=== PATIENT | female | born 1955 ===

== ENCOUNTER 2019-01-20 13:29 | Outpatient (CLI) | payer MEDICARE, MEDICAID, SELFPAY ==
[2019-01-20 14:01] LABS: Abs Immature Grans 0.01 k/cumm (0.0-0.09); Absolute Basophil Count 0.05 k/cumm (0.0-0.2); Absolute Eosinophil Count 0.16 k/cumm (0.0-0.7); Absolute Lymphocyte Count 2.03 k/cumm (1.2-3.4); Absolute Monocyte Count 0.53 k/cumm (0.11-0.7); Absolute Neutrophil Count 2.18 k/cumm (1.2-6.7); Eosinophils % 3.2; HCT 40.8 % (36.0-46.0); HGB 12.9 g/dL (12.0-15.5); Immature Grans % 0.2; Lymphocytes % 40.9; Mean Corp. HGB Concentration 31.6 g/dL (32.0-36.0); Mean Corpuscular Hemoglobin 31.6 pg (27.0-33.0); Mean Platelet Volume 9.7 fL (8.0-11.0); Monocytes % 10.7; Platelet Count 277 x1000/uL (130-400); RBC 4.08 m/cumm (4.00-5.20); RBC Distribution Width 12.8 % (11.7-14.6); White Blood Cell Count 4.96 k/cumm (4.4-10.8)
[2019-01-20 14:54] LABS: ALT 28 U/L (12-78); AST 11 U/L (15-37); Albumin 3.9 g/dL (3.4-5.0); Alkaline Phosphatase 105 U/L (46-116); Anion Gap 11.4 mmol/L (3-11); BUN 16 mg/dL (7-18); Bilirubin, Total 0.2 mg/dL (0.2-1.0); CO2 25.6 mmol/L (21.0-32.0); CREATININE 0.73 mg/dL (0.55-1.02); Chloride 103 mmol/L (98-107); FREE T4 0.77 ng/dL (0.76-1.46); Glucose 89 mg/dL (70-100); Potassium 4.2 mmol/L (3.5-5.1); Sodium 140 mmol/L (136-145); TSH 5.61 uIU/mL (0.36-3.74); Total Protein 7.6 g/dL (6.4-8.2)
[2019-01-20 21:33] LABS: T3,Free 3.3 pg/ml (2.8-5.3)
[2019-01-23 13:44] LABS: ANA Interpretation Negative (NEGAT)
[2019-01-24 12:32] LABS: SS-A Antibody 2.5 Units (<20); SS-B (La) Ab, IgG 5.3 Units (<20)
== END 2019-01-20 13:49 ==
PROVIDERS: PCP Naturopath; Visit Provider Naturopath
DX: J30.9 Allergic rhinitis, unspecified (principal); E04.1 Nontoxic single thyroid nodule; D53.9 Nutritional anemia, unspecified; E63.9 Nutritional deficiency, unspecified; H57.9 Unspecified disorder of eye and adnexa; R53.83 Other fatigue; R68.2 Dry mouth, unspecified
CPT/HCPCS: 36415; 80053; 84439; 84443; 84481; 85025; 86038; 86235

== ENCOUNTER 2019-03-21 01:36 | Outpatient (CLI) | payer MEDICARE, MEDICAID, SELFPAY ==
--- NOTE | 2019-03-21 14:42 | DI.RAD_ITS ---
EXAM: XR HIP LT COMPLETE AP PELVIS INDICATION: LT HIP PAIN, ? DISLOCATION,M25.552. COMPARISON: No exams were available for comparison TECHNIQUE: 2D digital imaging was performed. FINDINGS: The hip joint spaces are well maintained. No fracture or dislocation is seen. There is no deformit y of the femoral heads. SI joints show IMPRESSION: Mild degenerative changes. No evidence dislocation.
== END 2019-03-21 01:56 ==
PROVIDERS: PCP Naturopath; Visit Provider Naturopath
DX: M25.552 Pain in left hip (principal); M16.12 Unilateral primary osteoarthritis, left hip
CPT/HCPCS: 73502

== ENCOUNTER 2019-04-14 13:30 | Emergency (ER) | payer MEDICARE, MEDICAID, SELFPAY ==
[2019-04-14 13:33] VITALS: BP 130/76; PULSE 80; RESP 14; TEMP 35.8; O2SAT 97
--- NOTE | 2019-04-14 13:44 | DI.RAD_ITS ---
EXAM: XR ANKLE LT COMPLETE INDICATION: s/p twisting, r/o acute fracture. COMPARISON: No exams were available for comparison TECHNIQUE: 2D digital imaging was performed. FINDINGS: No fracture or dislocation is seen. The joint space is well maintained. No ankle mortise disruptio n is seen. IMPRESSION: Negative left ankle.
--- NOTE | 2019-04-14 13:45 | ED.GENADUL_ITS ---
Discharge Plan Disposition Patient Disposition: HOME Condition: Stable Discharge Details Chief Complaint: Orthopedic Clinical Impression: Left ankle sprain Primary Care Provider: Sergio Lara ED Provider: Lilia Louis Home Meds and New Rx's Prescriptions: Continued cat's claw (linda putnam) 400 MG capsule 400 mg PO DAILY RF: 0 acetylcysteine 500 MG capsule 1,000 mg PO DAILY RF: 0 haw[place]orn PO RF: 0 flavoring agent (bulk) [Grapefruit] 1 ML oil 1 ml Miscellaneous RF: 0 nystatin 500,000 UNITS tablet 500,000 units PO BID RF: 0 azithromycin 500 MG tablet 500 mg PO DAILY RF: 0 T-3 60 mcg PO DAILY RF: 0 T-4 90 mcg PO DAILY RF: 0 Discharge Instructions Instructions: Ankle Sprain (ED) Additional Instructions: Rest, ice and elevate left ankle as much as possible. Wear you anne wrap that you have at home. Use your home remedies that you have for pain as needed. Follow up with your primary care doctor for re-evaluation or referral to orthopedics if symptoms do not improve or worsen. Return to the emergency department with any concerns. Discharge Data Discharge Physician: Lilia Louis Medical Decision Making 64yo F w/ L ankle and foot pain after twisted her ankle when walking down stairs. Did not take anything for pain. There is tenderness to palpation L medial and lateral malleoli but no bony deformity or noted edema/erythema/ecchymoses. Neurovascularly intact. She was offered motrin or tylenol but declined stating she doesn't like to take medications. Ankle and foot xrays were done which were normal. She declines crutches or anne wrap. She states she has anne wrap at home. She was instructed on RICE and to use her usual home remedies for pain. She was advised to f/u with pcp if symptoms do not improve for referral to orthopedics and to return here with any concerns. Medical Records Medical records reviewed: Yes I reviewed the patient's medical records. Imaging Data Radiologic Study: Radiologist's impression: XR ANKLE LT COMPLETE INDICATION: s/p twisting, r/o acute fracture. COMPARISON: No exams were available for comparison TECHNIQUE: 2D digital imaging was performed. FINDINGS: No fracture or dislocation is seen. The joint space is well maintained. No ankle mortise disruption is seen. IMPRESSION: Negative left ankle. XR FOOT LT COMPLETE INDICATION: s/p twisting, r/o fracture. COMPARISON: No exams were available for comparison TECHNIQUE: 2D digital imaging was performed. FINDINGS: No fracture or dislocation is seen. The joint spaces are well maintained. No bony erosions are. IMPRESSION: Negative left foot. HPI General Mode of arrival: ambulatory . Date/Time Provider Initiated Documentation: 04/14/19 13:40 . Limitations to Documentation: no limitations . Information obtained by: patient . HPI Narrative: Pt is a 64yo F who presents to the ED w/ a c/o L ankle and foot pain after twisting her ankle when she missed the last step of a set of stairs while walking quickly. She denies any other injuries. She has applied ice. She does not like to take medications. Related Data Home Medications Medication Instructions Recorded Confirmed T-3 60 mcg PO DAILY 08/03/15 08/03/15 T-4 90 mcg PO DAILY 08/03/15 08/03/15 azithromycin 500 mg PO DAILY 08/03/15 08/03/15 nystatin 500,000 units PO BID 08/03/15 08/03/15 [place] PO 09/11/15 acetylcysteine 1,000 mg PO DAILY 09/11/15 cat's claw (uncaria tomentosa) 400 mg PO DAILY 09/11/15 flavoring agent (bulk) [Grapefruit] 1 ml MISCELLANEOUS 09/11/15 Allergies Allergy/AdvReac Type Severity Reaction Status Date / Time cat dander Allergy Mild Unverified 09/11/15 14:02 ranitidine HCl [From Zantac] Allergy Unverified 09/11/15 14:02 pregabalin [From Lyrica] AdvReac Severe Unverified 09/11/15 14:02 gluten Allergy Intermediate Swelling/Ed Uncoded 09/11/15 14:02 edgar mold Allergy Unknown Uncoded 09/11/15 14:02 General Stated Complaint: Orthopedic TJ: 4 Review of Systems All systems reviewed & are unremarkable except as noted in HPI and below PFSH Medical History Fibromyalgia (Acute) Hypothyroidism (Chronic) Lyme disease (Acute) Surgical History History of appendectomy (Chronic) History of bilateral tubal ligation (Acute) Social History Smoking/Tobacco Use Status: Never Drug use: Occasionally Substance use type: marijuana Details: occassional marijuana daily CBD Do you feel safe at home: Yes Do you feel safe in your relationship?: Yes Exam Const General: cooperative, healthy appearing and no acute distress HENMT Head: normal to inspection Mouth: oral mucosae normal Eyes General: appearance normal, both eyes and all related structures Neck Neck: normal visual inspection Resp Effort & Inspection: normal respiratory effort and able to speak in complete se ntences Cardio Rate: regular rate Skin General skin exam: no rashes or lesions noted Neuro General: alert, awake, oriented x3 and no focal motor deficits Motor: muscle tone normal throughout Sensory Exam: no sensory deficits noted Extrem Other: Tenderness to palpation L medial and lateral malleoli. There is no significant edema or ecchymoses, erythema or open wounds. L PT/DP pulses intact. No bony deformity. Psych Appearance: grossly normal Affect: normal affect Course Vital Signs Vital signs: Vital Signs Temperature 96.4 F L 04/14/19 13:33 Pulse 80 04/14/19 13:33 Respiratory Rate 14 04/14/19 13:33 Blood Pressure 130/76 04/14/19 13:33 Pulse Oximetry 97 04/14/19 13:33 Temperature 96.4 F L 04/14/19 13:33 Temperature Source Skin 04/14/19 13:33 Pulse 80 04/14/19 13:33 Respiratory Rate 14 04/14/19 13:33 Blood Pressure 130/76 04/14/19 13:33 Blood Pressure Position Sitting 04/14/19 13:33 Pulse Oximetry 97 04/14/19 13:33 Oxygen Delivery Method Room Air 04/14/19 13:33 Oxygen Flow Rate 0 04/14/19 13:33 Pain Level 8 04/14/19 13:33
== END 2019-04-14 14:28 | disposition home or self-care (01) ==
PROVIDERS: Emergency Provider Physician Assistant; PCP Naturopath
DX: S93.402A Sprain of unspecified ligament of left ankle, initial encounter (principal); W18.49XA Other slipping, tripping and stumbling without falling, initial encounter
CPT/HCPCS: 99283; 73610; 73630; 99282

== ENCOUNTER 2019-07-23 22:07 | Emergency (ER) | payer MEDICARE, MEDICAID, SELFPAY ==
[2019-07-23 22:11] VITALS: BP 139/96; PULSE 91; RESP 20; TEMP 36.8; O2SAT 97
--- NOTE | 2019-07-23 22:20 | W.ED.GENAD ---
Discharge Plan Disposition Patient Disposition: HOME Condition: Stable Discharge Details Chief Complaint: FlankPain Clinical Impression: Acute UTI, Abdominal pain, Diverticulosis Primary Care Provider: Sergio Lara ED Provider: Trinidad Helm Home Meds and New Rx's Prescriptions: New ciprofloxacin HCl 500 mg tablet 500 mg PO BID 7 Days Qty: 14 RF: 0 Continued cat's claw (alvaaria tomentosa) 400 MG capsule 400 mg PO DAILY RF: 0 acetylcysteine 500 MG capsule 1,000 mg PO DAILY RF: 0 hawthorn PO RF: 0 flavoring agent (bulk) [Grapefruit] 1 ML oil 1 ml Miscellaneous RF: 0 nystatin 500,000 UNITS tablet 500,000 units PO BID RF: 0 T-3 60 mcg PO DAILY RF: 0 T-4 90 mcg PO DAILY RF: 0 Discharge Instructions Instructions: Diverticulosis (ED), Urinary Tract Infection in Women (ED), Diverticulosis Diet (GEN), Abdominal Pain (ED) Additional Instructions: Follow up with primary care provider in 3-5 days. Return to ED sooner if any worsening or concerns. Increase oral fluids. Please take Tylenol or Ibuprofen with food every 4-6 hours as needed for pain and swelling. Please reconsider not taking the antibiotics. Please return if any worsening fever, abdominal pain, diarrhea or any concerns. Referrals: Sergio Lara [Primary Care Provider] - Medical Decision Making 64-year-old female presents with right flank pain which radiates around to her right side of her abdomen. This is been ongoing for about 4 days denies fever, diarrhea nausea vomiting, she reports relief from the pain with urination. She is concerned for kidney stone. She denies dysuria. Surgical history includes appendectomy and tubal ligation. PROCEDURE INFORMATION: Exam: CT Abdomen And Pelvis Without Contrast Exam date and time: 07/23/2019 10:49 PM Age: 64 years old Clinical indication: Other: Right flank pain TECHNIQUE: Imaging protocol: Computed tomography of the abdomen and pelvis without contrast. Radiation optimization: All CT scans at this facility use at least one of these dose optimization techniques: automated exposure control; mA and/or kV adjustment per patient size (includes targeted exams where dose is matched to clinical indication); or iterative reconstruction. COMPARISON: CR XR HIP LT COMPLETE AP PELVIS 03/21/2019 2:37 PM FINDINGS: Liver: No discrete hepatic mass detected on this noncontrast examination. Gallbladder and bile ducts: Normal. No calcified stones. No ductal dilation. Pancreas: Normal. No ductal dilation. Spleen: Normal. No splenomegaly. Adrenals: Normal. No mass. Kidneys and ureters: An 11 mm fluid attenuation cyst is seen along the lateral margin of the right kidney with no other right or left renal mass or hydronephrosis detected. No calcified stones are seen within either pelvicaliceal system or along the course of either ureter with both ureters normal in course and caliber. Stomach and bowel: Multiple diverticula involve the distal descending and sigmoid colonic segments without associated diverticulitis and other segments of large and small bowel are unremarkable. Appendix: Surgically absent. Intraperitoneal space: Unremarkable. No free air. No significant fluid collection. Vasculature: Unremarkable. No abdominal aortic aneurysm. Lymph nodes: Unremarkable. No enlarged lymph nodes. [facility] Preliminary Radiology Report [employer] (QA) DISCREPANCY? If there is a discrepancy between the preliminary and final interpretation, please notify [facility] via [email or web address]. If you do not have access to our QA portal, call our QA team at [phone] CONFIDENTIALITY STATEMENT This report is intended only for the use of the referring physician, and only in accordance with law, If you received this in error, call [phone] Page 2 of 2 Bladder: No calcified stones are seen within the urinary bladder. Reproductive: Unremarkable as visualized. Bones/joints: Unremarkable. No acute fracture. Soft tissues: Unremarkable. Other findings: Will IMPRESSION: 1. There is no evidence of obstructing renal calculus or acute hydronephrosis/hydroureter. 2. Diverticulosis without evidence of diverticulitis. There is no other evidence of an acute abdominpelvic process detected. Thank you for allowing us to participate in the care of your patient. Dictated and Authenticated by: Tom Pressley MD 07/23/2019 11:14 PM Eastern Time ([place] & [place]) Labs obtained including CBC, CMP and urinalysis which shows 25-50 WBCs in her urine. CT results are resulted as no evidence of obstructing renal calculus or acute hydronephrosis or hydroureter to diverticulosis without evidence of diverticulitis there is no other evidence of acute abdominal process detected. She does have an incidental 11 mm fluid-filled cyst to her right kidney. CT was performed without contrast so this could be diverticulitis. Also could be UTI. Patient was offered Toradol which she refused, she was also offered Tylenol which she refused. 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 Discussed possible urinary tract infection and possible infection in her colon I offered to prescribe her Cipro which she also refused. I will give her a prescription for Cipro to treat possible diverticulitis and UTI but it seems that patient may not take this medication at this time. She is alert and oriented and able to make her own decisions. Her vital signs are stable. She is afebrile. Strict return instructions given to return if she has fever, worsening pain or any concerns. Verbalized understanding. Lab Data Lab results reviewed: Yes I reviewed the patient's lab results. HPI General Mode of arrival: ambulatory. Date/Time Provider Initiated Documentation: 07/23/19 22:15. Limitations to Documentation: no limitations. Information obtained by: patient. HPI Narrative: 64-year-old female presents with right-sided flank pain which began 4 days ago. She reports worsening pain. Denies dysuria, nausea vomiting or diarrhea. No fever. Surgical history includes appendectomy and tubal ligation. Related Data Home Medications Medication Instructions Recorded Confirmed T-3 60 mcg PO DAILY 08/03/15 08/03/15 T-4 90 mcg PO DAILY 08/03/15 08/03/15 nystatin 500,000 units PO BID 08/03/15 08/03/15 [place] PO 09/11/15 acetylcysteine 1,000 mg PO DAILY 09/11/15 cat's claw (uncaria tomentosa) 400 mg PO DAILY 09/11/15 flavoring agent (bulk) [Grapefruit] 1 ml MISCELLANEOUS 09/11/15 ciprofloxacin HCl 500 mg PO BID 7 Days #14 tab 07/23/19 Previous Rx's Medication Instructions Recorded ciprofloxacin HCl 500 mg PO BID 7 Days #14 tab 07/23/19 Allergies Allergy/AdvReac Type Severity Reaction Status Date / Time cat dander Allergy Mild Unverified 09/11/15 14:02 ranitidine HCl [From Zantac] Allergy Unverified 09/11/15 14:02 pregabalin [From Lyrica] AdvReac Severe Unverified 09/11/15 14:02 gluten Allergy Intermediate Swelling/Ed Uncoded 09/11/15 14:02 edgar mold Allergy Unknown Uncoded 09/11/15 14:02 IV contrast AdvReac Unknown Uncoded 07/23/19 22:15 General Stated Complaint: FlankPain TJ: 3 Review of Systems Narrative: Constitutional: Negative for weight loss, alert and oriented, well groomed, normal body habitus, appears comfortable. HEENT: Denies trauma, headaches, blurry vision, nasal discharge, sore throat, trouble swallowing. Chest: Denies chest pain, palpitations, irregular rhythm, hypertension. Respiratory: Denies Shortness of breath, cough, hemoptysis. GI: Denies nausea, vomiting, diarrhea, constipation. Positive right-sided abdominal pain. : Denies dysuria, hematuria, rectal bleeding. Positive flank pain Neuro: Denies dizziness, blurry vision, weakness, syncope, headache or facial numbness. Hematologic: Denies easy bruising, intolerance to heat or cold, hair loss. [facility] Medical History Fibromyalgia (Acute) Hypothyroidism (Chronic) Lyme disease (Acute) Surgical History History of appendectomy (Chronic) History of bilateral tubal ligation (Acute) Social History Smoking/Tobacco Use Status: Never Alcohol Intake: current Alcohol Intake frequency: a few times a month Drug use: Occasionally Substance use type: marijuana Details: occassional marijuana daily CBD Do you feel safe at home: Yes Do you feel safe in your relationship?: Yes Exam Narrative Exam Narrative: Constitutional: Allert and oriented x3. Appears stated age. Normal body habitus. Head: Normocephalic, no trauma. Eyes: Pupils PERRLA, Red reflex noted, EOM's intact. Eyelids symmetrical withour lesions, discharge, or swelling. ENT: Bilateral TM's WNL, External ear normal to inspection, no mastoid TTP, swelling, or erythema, Nasal turbinates WNL, no nasal discharge. Normal dentition, Posterior pharynx WNL, no exudate. Chest: RRR, Normal S1, S2, distal pulses intact. Resp: Lungs clear to auscultation bilaterally, no wheezes, rales, or rhonchi. Abdomen: Tender to palpation over right lower quadrant and right upper quadrant. Right CVA tenderness. Hypoactive bowel sounds. Musculoskeletal: Normal gait, 5/5 strength to all four extremities. Skin: No suspicious rashes or lesions. Capillary refill ?2 sec. Neurologic: Cranial nerves II-XII intact. Alert and oriented x 3. DTR's intact. Hematologic/Lymphatic: No ecchymosis, no lymphadenopathy. Course Vital Signs Vital signs: Vital Signs Temperature 36.8 C 07/23/19 22:11 Pulse 91 H 07/23/19 22:11 Respiratory Rate 07/23/19 22:11 Blood Pressure 139/96 H 07/23/19 22:11 Pulse Oximetry 97 07/23/19 22:11 Temperature 36.8 C 07/23/19 22:11 Pulse 91 H 07/23/19 22:11 Respiratory Rate 20 07/23/19 22:11 Respiratory Effort Non-Labored 07/23/19 22:16 Blood Pressure 139/96 H 07/23/19 22:11 Pulse Oximetry 97 07/23/19 22:11 Oxygen Delivery Method Room Air 07/23/19 22:11 Oxygen Flow Rate 0 07/23/19 22:11 Pain Level 8 07/23/19 22:16
[2019-07-23 22:37] LABS: Abs Immature Grans 0.01 k/cumm (0.0-0.09); Absolute Basophil Count 0.06 k/cumm (0.0-0.2); Absolute Eosinophil Count 0.23 k/cumm (0.0-0.7); Absolute Lymphocyte Count 2.87 k/cumm (1.2-3.4); Absolute Monocyte Count 0.81 k/cumm (0.11-0.7); Basophils % 0.9; Eosinophils % 3.6; HCT 40.9 % (36.0-46.0); HGB 13.1 g/dL (12.0-15.5); Immature Grans % 0.2 %; Mean Platelet Volume 9.3 fL (8.0-11.0); Monocytes % 12.7; Neutrophils % 37.6; Platelet Count 338 x1000/uL (130-400); RBC 4.09 m/cumm (4.00-5.20); RBC Distribution Width 12.6 % (11.7-14.6); White Blood Cell Count 6.38 k/cumm (4.4-10.8)
[2019-07-23 22:45] LABS: ALT 25 U/L (14-59); AST 13 U/L (15-37); Alkaline Phosphatase 110 U/L (46-116); Anion Gap 7.4 mmol/L (3-11); BUN 16 mg/dL (7-18); Bilirubin, Total 0.2 mg/dL (0.2-1.0); CO2 28.6 mmol/L (21.0-32.0); CREATININE 0.82 mg/dL (0.55-1.02); Calcium 8.8 mg/dL (8.5-10.1); Chloride 106 mmol/L (98-107); Glucose 107 mg/dL (74-106); Lipase 219 U/L (73-393); Potassium 3.7 mmol/L (3.5-5.1); Sodium 142 mmol/L (136-145); Total Protein 7.8 g/dL (6.4-8.2)
[2019-07-23] MEDS: Normal Saline Flush 10 ML SYR IVP (22:45)
--- NOTE | 2019-07-23 22:52 | DI.CT_ITS ---
EXAM: CT RENAL COLIC WO CLINICAL HISTORY: RIGHT FLANK PAIN TECHNIQUE: Noncontrast COMPARISON: ABD PELVIS WITH CONTRAST from 09/15/2009 FINDINGS: No urinary tract calculi or hydronephrosis is seen. The bladder is unremarkable. There is a small c yst in the mid right kidney. Heart size is normal. The lung bases are clear. The liver shows geogr aphic fatty infiltration. No biliary dilatation or gallstones are seen. There is no gallbladder wal l thickening. The spleen, pancreas and adrenals are unremarkable. There is no bowel dilatation or i nflammatory change. There are diverticula in the sigmoid region of the colon but no evidence of dive rticulitis. The aorta is normal in diameter. The uterus and ovaries are unremarkable. IMPRESSION: No acute abnormality.
[2019-07-23 23:12] VITALS: BP 139/96; PULSE 91; RESP 20; TEMP 36.8; O2SAT 97
[2019-07-23 23:12] LABS: Bilirubin Negative (Negative); Blood Negative (Negative); Clarity Sl Cloudy (Clear); Glucose Negative (Negative); Ketones Negative (Negative); Leukocyte Esterase Small (Negative); Nitrite Negative (Negative); pH 7.5 (5-8)
--- NOTE | 2019-07-23 23:14 | DI.VRAD_ITS ---
PROCEDURE INFORMATION: Exam: CT Abdomen And Pelvis Without Contrast Exam date and time: 07/23/2019 10:49 PM Age: 64 years old Clinical indication: Other: Right flank pain TECHNIQUE: Imaging protocol: Computed tomography of the abdomen and pelvis without contrast. Radiation optimization: All CT scans at this facility use at least one of these dose optimization techniques: automated exposure control; mA and/or kV adjustment per patient size (includes targeted exams where dose is matched to clinical indication); or iterative reconstruction. COMPARISON: CR XR HIP LT COMPLETE AP PELVIS 03/21/2019 2:37 PM FINDINGS: Liver: No discrete hepatic mass detected on this noncontrast examination. Gallbladder and bile ducts: Normal. No calcified stones. No ductal dilation. Pancreas: Normal. No ductal dilation. Spleen: Normal. No splenomegaly. Adrenals: Normal. No mass. Kidneys and ureters: An 11 mm fluid attenuation cyst is seen along the lateral margin of the right kidney with no other right or left renal mass or hydronephrosis detected. No calcified stones are seen within either pelvicaliceal system or along the course of either ureter with both ureters normal in course and caliber. Stomach and bowel: Multiple diverticula involve the distal descending and sigmoid colonic segments without associated diverticulitis and other segments of large and small bowel are unremarkable. Appendix: Surgically absent. Intraperitoneal space: Unremarkable. No free air. No significant fluid collection. Vasculature: Unremarkable. No abdominal aortic aneurysm. Lymph nodes: Unremarkable. No enlarged lymph nodes. Bladder: No calcified stones are seen within the urinary bladder. Reproductive: Unremarkable as visualized. Bones/joints: Unremarkable. No acute fracture. Soft tissues: Unremarkable. Other findings: Will IMPRESSION: 1. There is no evidence of obstructing renal calculus or acute hydronephrosis/hydroureter. 2. Diverticulosis without evidence of diverticulitis. There is no other evidence of an acute abdominpelvic process detected. Dictated and Authenticated by: Tom Pressley MD. Ordering:FLAQUITO Abdi MD
[2019-07-23 23:23] LABS: Bacteria Moderate HPF (Negative); C & S Indicated? Yes; Epithelial Cells Few HPF (Negative); Other Cells Rare Renal (Negative); WBC 20-50 HPF (0-5)
== END 2019-07-24 00:05 | disposition home or self-care (01) ==
PROVIDERS: Emergency Provider Registered Nurse Emergency; PCP Naturopath
DX: N39.0 Urinary tract infection, site not specified (principal); K57.90 Diverticulosis of intestine, part unspecified, without perforation or abscess without bleeding; R10.11 Right upper quadrant pain; Z87.442 Personal history of urinary calculi; Z91.041 Radiographic dye allergy status
CPT/HCPCS: 36415; 80053; 83690; 99284; 74176; 81003; 81015; 85025; 87086

== ENCOUNTER 2020-07-12 02:06 | Outpatient (CLI) | payer MEDICARE, MEDICAID, SELFPAY ==
[2020-07-12 09:11] LABS: Abs Immature Grans 0.01 10^3/uL (0.0-0.06); Absolute Basophil Count 0.04 10^3/uL (0.0-0.2); Absolute Eosinophil Count 0.19 10^3/uL (0.0-0.7); Absolute Lymphocyte Count 2.18 10^3/uL (1.2-3.4); Absolute Monocyte Count 0.61 10^3/uL (0.1-0.8); Absolute Neutrophil Count 1.62 10^3/uL (1.2-6.7); Basophils % 0.9; Eosinophils % 4.1; HCT 40.4 % (36.0-46.0); HGB 13.1 g/dL (11.2-15.7); Immature Grans % 0.2; Lymphocytes % 46.9; MCH 32.3 pg (27.0-33.0); MCHC 32.4 % (32.0-36.0); MCV 99.8 fL (80-95); MPV 9.6 fL (8.0-11.0); Monocytes % 13.1; Neutrophils % 34.8; Nucleated RBC 0 %; Platelet Count 285 10^3/uL (130-400); RBC 4.05 10^6/uL (3.93-5.22); RDW 12.5 % (11.7-14.6); RDW-SD 46.4 fL; WBC 4.65 10^3/uL (4.4-10.8)
[2020-07-12 09:20] LABS: Bilirubin Negative (Negative); Blood Trace-intact (Negative); Clarity Sl Cloudy (Clear); Glucose Negative (Negative); Ketones Negative (Negative); Leukocyte Esterase Negative (Negative); Nitrite Negative (Negative); Specific Gravity >= 1.030 (1.005-1.025); Urobilinogen 0.2 EU/dL (Up TO 0.2)
[2020-07-12 10:04] LABS: Iron 64 ug/dL (50-170)
[2020-07-12 10:07] LABS: Epithelial Cells Moderate HPF (Negative); RBC 0-2 HPF (0-2)
[2020-07-12 10:08] LABS: Bacteria Few HPF (Negative); C & S Indicated? No/Sq. Contamination; Casts Negative LPF (Negative); Crystals Rare Calcium Oxalate HPF (Negative); Mucus Moderate (Negative); Other Cells Rare Renal (Negative)
[2020-07-12 10:32] LABS: ALT 27 U/L (14-59); AST 14 U/L (15-37); Alkaline Phosphatase 93 U/L (46-116); BUN 15 mg/dL (7-18); Bilirubin, Total 0.3 mg/dL (0.2-1.0); CREATININE 0.8 mg/dL (0.55-1.02); Calcium 9.2 mg/dL (8.5-10.1); Chloride 105 mmol/L (98-107); Ferritin 117 ng/mL (8-252); Glucose 104 mg/dL (74-106); Potassium 3.8 mmol/L (3.5-5.1); Sodium 140 mmol/L (136-145); TSH 7.84 uIU/mL (0.36-3.74); Total Protein 7.4 g/dL (6.4-8.2); Vitamin B12 529 pg/mL (193-986)
[2020-07-12 17:08] LABS: T3,Free 4.1 pg/mL (2.8-5.3)
[2020-07-15 23:09] LABS: 25-Hydroxy D Total 56 ng/mL; 25-Hydroxy D2 <4.0 ng/mL; 25-Hydroxy D3 56 ng/mL
== END 2020-07-12 02:26 ==
PROVIDERS: PCP Naturopath; Visit Provider Naturopath
DX: E55.9 Vitamin D deficiency, unspecified (principal); R53.83 Other fatigue; D53.9 Nutritional anemia, unspecified; D50.9 Iron deficiency anemia, unspecified; Z00.00 Encounter for general adult medical examination without abnormal findings; E03.9 Hypothyroidism, unspecified; M79.2 Neuralgia and neuritis, unspecified; K14.0 Glossitis; E66.3 Overweight; Z13.1 Encounter for screening for diabetes mellitus
CPT/HCPCS: 36415; 80053; 82306; 81003; 81015; 82607; 82728; 83036; 83540; 84439; 84443; 84481; 85025

== ENCOUNTER 2020-10-16 04:39 | Outpatient (CLI) | payer MEDICARE, MEDICAID, SELFPAY ==
[2020-10-16 07:43] LABS: Kit/Specimen SENT
== END 2020-10-16 04:40 | disposition home or self-care (01) ==
LOC: LBO 04:40
PROVIDERS: PCP Naturopath; Visit Provider Naturopath
DX: R42 Dizziness and giddiness (principal)
CPT/HCPCS: 36415

== ENCOUNTER 2022-10-07 17:09 | Outpatient (CLI) | payer MEDICARE, MEDICAID, SELFPAY ==
--- NOTE | 2022-10-07 | DI.RAD_ITS ---
Exam(s) XR SHOULDER LT COMPLETE 2+V XR ACROMIO CLAVICULAR JOINTS EXAM: XR SHOULDER LT COMPLETE 2+V CLINICAL HISTORY: PAIN IN LT SHOULDER S/P FALL 4 WEEKS AGO, ? FX OR BONY ABNORMALITY. TECHNIQUE: 2D digital imaging was performed. Three views. COMPARISON: CR XR ACROMIO CLAVICULAR JOINTS from 10/07/2022 FINDINGS: BONES: No acute fracture is present. No bony destructive lesion is seen. JOINTS: No dislocation present.AC joints symmetric and not not widened. No significant degenerative changes. SOFT TISSUE: Normal. IMPRESSION: Unremarkable radiographs of the left shoulder and acromioclavicular joints.. DATA REPOSITORY: RADIATION DOSE DELIVERED:
== END 2022-10-07 17:29 ==
LOC: DI 17:10
PROVIDERS: PCP Naturopath; Visit Provider Physician Assistant Medical
DX: M25.512 Pain in left shoulder (principal)
CPT/HCPCS: 73030; 73050

== ENCOUNTER → 2022-11-11 13:37 | Outpatient (BNVA) | payer MEDICARE, MEDICAID, SELFPAY | PROVIDERS: PCP Naturopath; Referring Provider Naturopath; Visit Provider Student in an Organized Health Care Education/Training Program | DX: M75.102 Unspecified rotator cuff tear or rupture of left shoulder, not specified as traumatic (principal) | CPT/HCPCS: 99203 ==

== ENCOUNTER 2023-01-05 11:32 | Outpatient (CLI) | payer MEDICARE, MEDICAID, SELFPAY ==
--- NOTE | 2023-01-05 10:45 | DI.RAD_ITS ---
Exam(s) XR HIP LT COMPLETE AP PELVIS EXAM: XR HIP LT COMPLETE AP PELVIS CLINICAL HISTORY: hip pain. TECHNIQUE: 2D digital imaging was performed. COMPARISON: No exams were available for comparison FINDINGS: Two views. No evidence of pelvic nor hip fracture. No hip joint space narrowing. No osteophytes. Bone density age-appropriate. No osseous lesions. SI joints unremarkable There is left-sided sacralization of the L5 segment incidentally noted. IMPRESSION: No significant osseous findings in the hips. DATA REPOSITORY: RADIATION DOSE DELIVERED:
== END 2023-01-05 11:33 | disposition home or self-care (01) ==
LOC: DIORS 11:32
PROVIDERS: PCP Naturopath; Referring Provider Naturopath; Visit Provider Student in an Organized Health Care Education/Training Program
DX: M25.559 Pain in unspecified hip (principal); M75.102 Unspecified rotator cuff tear or rupture of left shoulder, not specified as traumatic; M70.62 Trochanteric bursitis, left hip; M54.2 Cervicalgia
CPT/HCPCS: 99214; 73502

== ENCOUNTER → 2023-01-25 02:45 | Outpatient (CLI) | payer MEDICARE, MEDICAID, SELFPAY ==
--- NOTE | 2023-01-25 07:00 | DI.MRI_ITS ---
Exam(s) MR UPPER JOINT LT WO EXAM: MR UPPER JOINT LT WO CLINICAL HISTORY: LEFT SHOULDER PAIN,LT ROTATOR CUFF TEAR,M75.102 TECHNIQUE: Multiplanar multisequence MRI of the shoulder was performed. COMPARISON: CR XR SHOULDER LT COMPLETE 2+V from 10/07/22 FINDINGS: MARROW:There is no evidence of fracture, Hill-Sachs deformity, bony Bankart lesion nor ominous osseou s lesions. ROTATOR CUFF MECHANISM: AC JOINT/ACROMIUM: Mild degenerative changes.. There is no evidence of os acromiale. Supraspinatus: There is some articular surface signal abnormality consistent with mild tendinitis. T here is no high-grade tear. No fluid seen in the subacromial bursa. No atrophy. Infraspinatus: Intact. No evidence of tear nor muscle atrophy. Teres Minor: Intact. No evidence of tear nor muscle atrophy. Subscapularis/anterior cuff: Intact. No abnormal signal at the level of the multipennate insertional fibers. No significant tear nor atrophy. BICEPS TENDON: Not displaced from the intertubercular groove. Does contain some fluid in the tendon sheath. No loose bodies in the tendon sheath. LABRUM: There is no abnormal signal evident in the superior labrum posterior to the biceps insertion. The posterior labrum appears intact. Inferior labrum appears intact. There is a small area of sig nal abnormality in the anterosuperior labrum but may just represent the labral sulcus. There is no e vidence of paralabral cyst. LABROLIGAMENTOUS/CAPSULAR COMPLEX: There is no evidence of avulsion of the anterior-inferior labrum, capsule, inferior glenohumeral liga ment complex nor disruption of the scapular periosteum to suggest the presence of a Bankart lesion. GLENOHUMERAL JOINT: There is a small joint effusion. Mild synovial thickening noted in the inferior recess. No degenerative subarticular cysts. No prominent osteophytes. No bone edema. No loose int ra-articular bodies evident. QUADRILATERAL SPACE: No evidence of mass in the region of the axillary nerve and dorsal circumflex hu meral vessels. Visualized triceps muscle at this level appears unremarkable. IMPRESSION: 1. Mild supraspinatus findings described above but no evidence of tendon significant tear. No atroph y. Other muscular components of the rotator cuff mechanism appear unremarkable. There is no fluid i n the subacromial-subdeltoid bursa. 2. Subtle evidence of anterosuperior labral tearing but this may just be related to the sublabral sul cus. There is no evidence of true SLAP-type tear. No evidence of paralabral cysts. 3. Small glenohumeral joint effusion. No loose intra-articular bodies. DATA REPOSITORY:
== END ==
PROVIDERS: PCP Naturopath; Visit Provider Student in an Organized Health Care Education/Training Program
DX: M75.22 Bicipital tendinitis, left shoulder (principal); M25.512 Pain in left shoulder
CPT/HCPCS: 73221

== ENCOUNTER → 2023-02-02 10:30 | Outpatient (BNVA) | payer MEDICARE, MEDICAID, SELFPAY | PROVIDERS: PCP Naturopath; Visit Provider Student in an Organized Health Care Education/Training Program | DX: M75.52 Bursitis of left shoulder (principal) | CPT/HCPCS: 99213 ==

== ENCOUNTER → 2023-03-09 10:26 | Outpatient (BNVA) | payer MEDICARE, MEDICAID, SELFPAY | PROVIDERS: Visit Provider Student in an Organized Health Care Education/Training Program | DX: M54.2 Cervicalgia (principal); M70.62 Trochanteric bursitis, left hip; M75.102 Unspecified rotator cuff tear or rupture of left shoulder, not specified as traumatic | CPT/HCPCS: 99213 ==

== ENCOUNTER 2023-08-30 21:17 | Outpatient (REF) | payer MEDICARE, MEDICAID, SELFPAY ==
[2023-08-30 21:52] LABS: Abs Immature Grans 0.01 10^3/uL (0.0-0.06); Absolute Basophil Count 0.08 10^3/uL (0.0-0.2); Absolute Eosinophil Count 0.14 10^3/uL (0.0-0.7); Absolute Lymphocyte Count 1.98 10^3/uL (1.2-3.4); Absolute Monocyte Count 0.63 10^3/uL (0.1-0.8); Absolute Neutrophil Count 2.18 10^3/uL (1.2-6.7); Basophils % 1.6; Eosinophils % 2.8; HCT 42.5 % (36.0-46.0); HGB 13.6 g/dL (11.2-15.7); Immature Grans % 0.2; Lymphocytes % 39.4; MCH 31.5 pg (27.0-33.0); MCV 98 fL (80-95); Monocytes % 12.5; Neutrophils % 43.5; Platelet Count 334 10^3/uL (130-400); RBC 4.32 10^6/uL (3.93-5.22); RDW 12.6 % (11.7-14.6); RDW-SD 45.3 fL; WBC 5.02 10^3/uL (4.4-10.8)
[2023-08-30 21:56] LABS: ALT 30 U/L (14-59); AST 14 U/L (15-37); Albumin 3.9 g/dL (3.4-5.0); Alkaline Phosphatase 125 U/L (46-116); Anion Gap 10.9 mmol/L (3-11); BUN 14 mg/dL (7-18); Bilirubin, Total 0.1 mg/dL (0.2-1.0); CO2 23.1 mmol/L (21.0-32.0); CREATININE 0.8 mg/dL (0.55-1.02); Calcium 9.4 mg/dL (8.5-10.1); Chloride 108 mmol/L (98-107); Estimated GFR 80.71 (mL/min/1.73m2); Glucose 101 mg/dL (74-106); Magnesium 2.2 mg/dL (1.8-2.4); Potassium 4.8 mmol/L (3.5-5.1); Sodium 142 mmol/L (136-145); Total Protein 7.8 g/dL (6.4-8.2)
== END 2023-08-30 21:18 | disposition home or self-care (01) ==
LOC: NCHCN 21:17
PROVIDERS: Visit Provider Family Medicine
DX: C91.90 Lymphoid leukemia, unspecified not having achieved remission (principal)
CPT/HCPCS: 80053; 83735; 85025

== ENCOUNTER 2024-06-12 22:01 | Outpatient (REF) | payer MEDICARE, MEDICAID, SELFPAY ==
[2024-06-12 22:15] LABS: Abs Immature Grans 0.02 10^3/uL (0.0-0.06); Absolute Basophil Count 0.07 10^3/uL (0.0-0.2); Absolute Eosinophil Count 0.23 10^3/uL (0.0-0.7); Absolute Lymphocyte Count 2.14 10^3/uL (1.2-3.4); Absolute Neutrophil Count 2.86 10^3/uL (1.2-6.7); Basophils % 1.2 %; Eosinophils % 3.9 %; HCT 43.6 % (36.0-46.0); HGB 13.6 g/dL (11.2-15.7); Immature Grans % 0.3 %; Lymphocytes % 36.1 %; MCH 31.6 pg (27.0-33.0); MCHC 31.2 % (32.0-36.0); MCV 101 fL (80-95); MPV 9.8 fL (8.0-11.0); Monocytes % 10.1 %; Neutrophils % 48.4 %; Platelet Count 314 10^3/uL (130-400); RBC 4.31 10^6/uL (3.93-5.22); RDW 12.2 % (11.7-14.6); RDW-SD 46.4 fL; WBC 5.92 10^3/uL (4.4-10.8)
[2024-06-12 22:21] LABS: Iron 72 ug/dL (50-170); Total Iron Binding Capacity 341 ug/dL (250-450); Transferrin Sat 21 % (15-50)
[2024-06-12 22:49] LABS: ALT 26 U/L (14-59); AST 18 U/L (15-37); Albumin 3.9 g/dL (3.4-5.0); Alkaline Phosphatase 109 U/L (46-116); Anion Gap 10.6 mmol/L (3-11); BUN 12 mg/dL (7-18); Bilirubin, Total 0.24 mg/dL (0.2-1.0); CO2 26.4 mmol/L (21.0-32.0); CREATININE 0.8 mg/dL (0.55-1.02); Calcium 9.8 mg/dL (8.5-10.1); Chloride 105 mmol/L (98-107); Estimated GFR 80.21 (mL/min/1.73m2); Ferritin 156 ng/mL (8-252); Glucose 92 mg/dL (74-106); Potassium 4.4 mmol/L (3.5-5.1); Sodium 142 mmol/L (136-145); Vitamin B12 603 pg/mL (193-986)
[2024-06-13 20:10] LABS: Folate 12.9 ng/mL (See Note)
[2024-06-14 10:00] LABS: Lyme Ab w Rflx to Lyme Confirm Negative (Negative)
[2024-06-16 14:39] LABS: Bartonella PCR Negative; Specimen Source BLOOD
[2024-06-16 15:50] LABS: Babesia divergens/MO-1 Negative (Negative); Babesia duncani Negative (Negative); Babesia microti Negative (Negative)
== END 2024-06-12 22:02 | disposition home or self-care (01) ==
LOC: NCHCN 22:01
PROVIDERS: PCP Family Medicine; Visit Provider Family Medicine
DX: R53.83 Other fatigue (principal)
CPT/HCPCS: 80053; 87801; 82607; 82728; 82746; 83540; 83550; 85025; 86618; 87798

== ENCOUNTER 2024-06-20 15:53 | Outpatient (REF) | payer MEDICARE, MEDICAID, SELFPAY ==
[2024-06-20 21:13] LABS: Abs Immature Grans 0.03 10^3/uL (0.0-0.06); Absolute Basophil Count 0.07 10^3/uL (0.0-0.2); Absolute Eosinophil Count 0.18 10^3/uL (0.0-0.7); Absolute Lymphocyte Count 1.82 10^3/uL (1.2-3.4); Absolute Monocyte Count 0.96 10^3/uL (0.1-0.8); Absolute Neutrophil Count 5.87 10^3/uL (1.2-6.7); Basophils % 0.8 %; HCT 38.8 % (36.0-46.0); HGB 12.4 g/dL (11.2-15.7); Immature Grans % 0.3 %; Lymphocytes % 20.4 %; MCH 31.2 pg (27.0-33.0); MCV 98 fL (80-95); MPV 9.5 fL (8.0-11.0); Monocytes % 10.8 %; Neutrophils % 65.7 %; Platelet Count 321 10^3/uL (130-400); RBC 3.97 10^6/uL (3.93-5.22); RDW-SD 43.8 fL; WBC 8.93 10^3/uL (4.4-10.8)
== END 2024-06-20 15:54 | disposition home or self-care (01) ==
LOC: NCHCN 15:53
PROVIDERS: PCP Family Medicine; Visit Provider Nurse Practitioner Family
DX: R10.30 Lower abdominal pain, unspecified (principal)
CPT/HCPCS: 85025

== ENCOUNTER 2024-07-25 02:39 | Outpatient (CLI) | payer MEDICARE, MEDICAID, SELFPAY ==
--- NOTE | 2024-07-25 | DI.MRI_ITS ---
Exam(s) MR BRAIN WO EXAM: MR BRAIN WO CLINICAL HISTORY: H53.9 Unspecified visual disturbance,left eye and word finding difficulties TECHNIQUE: Multiplanar multisequence MRI of the brain was performed. COMPARISON: No exams were available for comparison FINDINGS: VENTRICLES AND EXTRA AXIAL SPACES: Normal in size and morphology for the patient's age. MIDLINE SHIFT: None. CEREBRAL PARENCHYMA: No focus of restricted diffusion to suggest acute infarct. No space-occupying le re identified. No significant atrophy. There are few scattered foci of high signal in the white ma tter consistent with sequela of chronic microvascular disease. BRAINSTEM/CEREBELLUM: Normal. VISUALIZED PARANASAL SINUSES: Clear. MASTOIDS:Clear. Vasculature: Normal flow void. PITUITARY GLAND: Unremarkable. ORBITS: Unremarkable. IMPRESSION: Unremarkable MRI of the brain. DATA REPOSITORY:
== END 2024-07-25 02:59 ==
LOC: DI 02:39
PROVIDERS: PCP Family Medicine; Visit Provider Family Medicine
DX: H53.9 Unspecified visual disturbance (principal)
CPT/HCPCS: 70551

== ENCOUNTER 2025-03-12 03:34 | Outpatient (CLI) | payer MEDICARE, MEDICAID, SELFPAY ==
--- NOTE | 2025-03-12 | DI.RAD_ITS ---
Exam(s) XR KNEE LT 3V AP,LAT,HARMAN EXAM: XR KNEE LT 3V AP,LAT,HARMAN CLINICAL HISTORY: LT KNEE PAIN,M25.562. TECHNIQUE: 2D digital imaging was performed. Three views. COMPARISON: No exams were available for comparison FINDINGS: BONES: No acute fracture is present. No bony destructive lesion is seen. Small enthesophyte at the quadriceps insertion on the patella. JOINTS: The knee is normally aligned. The joint spaces are maintained. No significant degenerative changes. No joint effusion is seen. SOFT TISSUE: Normal. IMPRESSION: No acute abnormality. DATA REPOSITORY: RADIATION DOSE DELIVERED:
== END 2025-03-12 03:54 ==
PROVIDERS: PCP Family Medicine; Visit Provider Family Medicine
DX: M25.562 Pain in left knee (principal)
CPT/HCPCS: 73562

== ENCOUNTER 2025-04-26 17:34 | Outpatient (REF) | payer MEDICARE, MEDICAID, SELFPAY ==
[2025-04-26 20:40] LABS: HCT 40.0 % (36.0-46.0); HGB 12.5 g/dL (11.2-15.7); MCH 30.9 pg (27.0-33.0); MCHC 31.3 % (32.0-36.0); MCV 99 fL (80-95); MPV 9.8 fL (8.0-11.0); Platelet Count 286 10^3/uL (130-400); RBC 4.05 10^6/uL (3.93-5.22); RDW 12.5 % (11.7-14.6); RDW-SD 45.2 fL; WBC 6.79 10^3/uL (4.4-10.8)
[2025-04-26 21:43] LABS: Uric Acid 3.4 mg/dL (3.1-7.8)
[2025-04-27 17:00] LABS: CRP, High Sensitivity 9.67 mg/L (See Note)
[2025-04-30 11:33] LABS: Lyme Ab w Rflx to Lyme Confirm Negative (Negative)
== END 2025-04-26 17:35 | disposition home or self-care (01) ==
LOC: NCHCN 17:34
PROVIDERS: PCP Family Medicine; Visit Provider Family Medicine
DX: M25.562 Pain in left knee (principal)
CPT/HCPCS: 85027; 86141; 86200; 84550; 86038; 86431; 86618

== ENCOUNTER 2025-05-29 12:06 | Outpatient (REF) | payer MEDICARE, MEDICAID, SELFPAY ==
[2025-05-31 12:51] LABS: Specimen Source BLOOD
== END 2025-05-29 12:07 | disposition home or self-care (01) ==
LOC: NCHCN 12:06
PROVIDERS: PCP Family Medicine; Visit Provider Family Medicine
DX: R21 Rash and other nonspecific skin eruption (principal)
CPT/HCPCS: 87801